=== PATIENT | female | born 1990 | race Caucasian/White ===

== ENCOUNTER 2021-10-27 07:57 | Emergency (ER) | payer BC ==
[~2021-10-27] VITALS: Ht 172.7 cm; Wt 108.9 kg
--- NOTE | 2021-10-27 08:18 | NUR ---
PT CAME TO ER C/O N/V X 2 DAYS S/P 2 HRS AFTER INCREASING HER DOSE OF WEGOVY MEDICATION FOR WEIGHT LOSS. ADMITS DIZZINESS, HEADACHE WELL. AAOX4, BREATHING EVEN AND UNLABORED, PULSES 2+ BILATERALLY, SKIN IS WARM TO TOUCH. ON MONITOR. VS STABLE.
--- NOTE | 2021-10-27 08:35 | NUR ---
BLOOD SAMPLE OBTAINED AND SENT TO LAB
[2021-10-27] MEDS ORDERED: ONDANSETRON HCL/PF 4 MG/2 ML VIAL IVP ONE (09:00)
[2021-10-27] MEDS ORDERED: IV LR 1000 ML 1,000 ML IV ONE ×2 (09:00→11:30)
[2021-10-27] MEDS ORDERED: ONDANSETRON HCL/PF 4 MG/2 ML VIAL ONE (09:03)
[2021-10-27 09:10] LABS: BASOPHILS % (AUTO) 0.3 % (0.0-2.0); HEMATOCRIT 39 % (33-45); HEMOGLOBIN 12.9 g/dL (11.5-14.8); LYMPHOCYTES # (AUTO) 1.1 K/uL (0.8-4.8); LYMPHOCYTES % (AUTO) 15.6 % (20.0-44.0); MEAN CORPUSCULAR HGB CONC 33 g/dl (31.0-36.0); MEAN CORPUSCULAR VOLUME 89 fL (82-100); MONOCYTES # (AUTO) 0.4 K/uL (0.1-1.30); MONOCYTES % (AUTO) 5.4 % (2.0-12.0); NEUTROPHILS # (AUTO) 5.5 K/uL (1.8-8.9); NEUTROPHILS % (AUTO) 78.7 % (43.0-81.0); PLATELET COUNT (AUTO) 285 K/uL (150-450); RED BLOOD CELL COUNT(AUTO) 4.39 MIL/uL (4.0-5.2); WHITE BLOOD COUNT (AUTO) 6.9 K/uL (4.3-11.0)
--- NOTE | 2021-10-27 09:17 | NUR ---
IVF - LR Zofran IVP given as ordered
[2021-10-27 09:49] LABS: ALBUMIN 3.8 g/dL (3.4-5.0); BILIRUBIN,TOTAL 0.5 mg/dL (0.2-1.0); CALCIUM, SERUM 9.3 mg/dL (8.5-10.1); CREATININE 0.7 mg/dL (0.6-1.3); POTASSIUM 4.2 mmol/L (3.5-5.1); TOTAL PROTEIN, SERUM 8.1 g/dL (6.4-8.2)
--- NOTE | 2021-10-27 10:05 | NUR ---
URINE SAMPLE OBTAINED
--- NOTE | 2021-10-27 11:35 | NUR ---
2ND BAG LR ADMINISTERED
[2021-10-27 12:02] LABS: BILIRUBIN,URINE NEGATIVE (NEGATIVE); COLOR,URINE YELLOW (YELLOW); LEUKOCYTE ESTERASE ,URINE NEGATIVE (NEGATIVE); NITRITE, URINE NEGATIVE (NEGATIVE); PROTEIN,URINE NEGATIVE (NEGATIVE); UGLUCOSE NEGATIVE (NEGATIVE); UROBILINOGEN,URINE 0.2 EU/dL (0.2)
--- NOTE | 2021-10-27 13:06 | NUR ---
PT TOLERATED PO FLUIDS WELL. DENIES URGE TO VOMIT.
[2021-10-27] MEDS ORDERED: ONDA4TAB11 PO (13:11)
--- NOTE | 2021-10-27 13:25 | NUR ---
Patient discharged to home in stable condition. Written and verbal after care instructions given. Patient verbalizes understanding of instruction.
[2021-10-27 13:36] VITALS: BP 126/83
== END 2021-10-27 13:37 | disposition home or self-care (01) ==
LOC: ER 08:02
DX: R11.2 Nausea with vomiting, unspecified (principal); R19.7 Diarrhea, unspecified; Z98.890 Other specified postprocedural states
CPT/HCPCS: 36415; 80048; 80076; 81003; 83690; 84484; 84703; 85025; 93005; 96361; 96374; 99284; J2405; J7030 ×2; J7120